=== PATIENT | male | born 1950 | race Caucasian/White ===

== ENCOUNTER → 2023-10-26 09:08 | Outpatient (REF) | payer MEDICARE, SELFPAY | LOC: HWRAD 09:08 | PROVIDERS: ATTENDING PHYSICIAN Nurse Practitioner Family | DX: R29.90 Unspecified symptoms and signs involving the nervous system (principal) | CPT/HCPCS: 70450 ==

== ENCOUNTER → 2024-09-25 09:34 | Outpatient (REF) | payer MEDICARE, SELFPAY | LOC: HWRAD 09:34 | PROVIDERS: ATTENDING PHYSICIAN Nurse Practitioner Family | DX: F17.210 Nicotine dependence, cigarettes, uncomplicated (principal) | CPT/HCPCS: 71271; 76770 ==

== ENCOUNTER → 2024-10-04 07:54 | Outpatient (REF) | payer MEDICARE, SELFPAY | LOC: RAD 07:54 | PROVIDERS: ATTENDING PHYSICIAN Nurse Practitioner Family | DX: R91.1 Solitary pulmonary nodule (principal) | CPT/HCPCS: 71260; Q9967 ==

== ENCOUNTER → 2024-11-01 12:01 | Outpatient (REF) | payer MEDICARE, SELFPAY ==
[2024-11-01 12:14] LABS: Glucose 123 mg/dl (70-99)
== END ==
LOC: PET 12:01
PROVIDERS: ATTENDING PHYSICIAN Internal Medicine Critical Care Medicine
DX: R91.1 Solitary pulmonary nodule (principal); Z01.818 Encounter for other preprocedural examination
CPT/HCPCS: 36415; 82947

== ENCOUNTER → 2025-01-30 14:08 | Outpatient (REF) | payer MEDICARE, SELFPAY | LOC: RAD 14:08 | PROVIDERS: ATTENDING PHYSICIAN Radiology Radiation Oncology; FAMILY PHYSICIAN Nurse Practitioner Family | DX: C34.11 Malignant neoplasm of upper lobe, right bronchus or lung (principal); R60.0 Localized edema | CPT/HCPCS: 93970 ==